=== PATIENT | male | born 1960 | race Caucasian/White ===

== ENCOUNTER 2017-11-10 23:41 | Emergency (ER) | END 2017-11-11 01:14 | disposition left against medical advice (07) ==

== ENCOUNTER → 2018-11-27 | Outpatient (CLI) | payer SELFPAY ==
[~2018-11-27] MED LIST: ATOR10TA65 PO; HYDR-3601 PO; IOHEXOL 300MG/ML 150 ML BTL ONE; SENN-120 PO; SOD CHLORIDE 0.9% 100 ML ONE
== END | disposition home or self-care (01) ==
LOC: C/S 12:13
PROVIDERS: ATTEND Surgery
DX: R10.2 Pelvic and perineal pain (principal)
CPT/HCPCS: 74177; Q9967

== ENCOUNTER 2019-01-05 17:26 | Emergency (ER) | payer OTHER ==
[~2019-01-05] VITALS: Ht 165.1 cm; Wt 70.1 kg
[~2019-01-05 17:26] MED LIST changes: -IOHEXOL 300MG/ML 150 ML BTL ONE; -SOD CHLORIDE 0.9% 100 ML ONE
[2019-01-05 17:30] VITALS: Ht 165.1 cm; Wt 70.1 kg
[2019-01-05] MEDS ORDERED: HYDROCODONE/APAP (5/325) TAB PO ONE (18:00)
[2019-01-05] MEDS ORDERED: LIDOCAINE 1% (MDV) 20 ML INJ SC ONE (18:00)
[2019-01-05] MEDS ORDERED: DIPHTH/TET/ACEL PERTUSS (ADULT) 0.5 ML VIAL IM* ONE (18:00)
[2019-01-05] MEDS ORDERED: CEPHALEXIN 500 MG CAP PO ONE (18:30)
[2019-01-05] MEDS ORDERED: HYDR-4011 PO (19:10)
[2019-01-05] MEDS ORDERED: CEPH-443 PO (19:10)
[2019-01-05] MEDS ORDERED: IBUP-1542 PO (19:11)
--- NOTE | 2019-01-05 19:16 | ERD ---
ER Documentation Chief Complaint Chief Complaint CUT INDEX AND MIDDLE LEFT FINGER WITH SAW. NO RECENT TDAP HPI 58-year-old male sustained a laceration on his left index finger left middle f tonya with a table saw today. He has no restricted range of motion or weakness. Tetanus is not up-to-date. Denies additional injury. ROS All systems reviewed and are negative except as per history of present illness. Medications Home Meds Active Scripts Ibuprofen* (Motrin*) 600 Mg Tab, 600 MG PO Q6H PRN for PAIN, #20 TAB Prov:KEITH CLIFFORD MD 01/05/19 Hydrocodone/Acetaminophen ([place] 5-325 Tablet) 1 Each Tablet, 1 TAB PO Q6H PRN for PAIN, #10 TAB Prov:KEITH CLIFFORD MD 01/05/19 Cephalexin* (Keflex*) 500 Mg Capsule, 500 MG PO Q6 for 7 Days, #28 CAP Prov:KEITH CLIFFORD MD 01/05/19 Sennosides* (Senna Lax*) 8.6 Mg Tablet, 1 TAB PO Q12H PRN for CONSTIPATION, #10 TAB Prov:JIGNA REED MD 03/19/18 Atorvastatin Calcium (Atorvastatin Calcium) 10 Mg Tablet, 10 MG PO QHS, #30 TAB Prov:JIGNA REED MD 03/19/18 Hydrocodone Bit-Acetaminophen (Hydrocodone Bit-APAP) 5-325MG Tablet, 2 TAB PO Q6H PRN for SEVERE PAIN LEVEL 7-10, #30 TAB Prov:JIGNA REED MD 03/19/18 Allergies Allergies: Coded Allergies: No Known Drug Allergies (Verified Allergy, Unknown, 01/05/19) PMhx/Soc History of Surgery: Yes (HERNIA REPAIR ) Anesthesia Reaction: No Hx Neurological Disorder: No Hx Respiratory Disorders: No Hx Cardiac Disorders: No Hx Psychiatric Problems: No Hx Miscellaneous Medical Probl: No Hx Alcohol Use: Yes Hx Substance Use: No Hx Tobacco Use: Yes Smoking Status: Current every day smoker FmHx Family History: No diabetes, No coronary disease, No other Physical Exam Vitals Vital Signs Date Temp Pulse Resp B/P (MAP) Pulse Ox O2 O2 Flow FiO2 Time Delivery Rate 01/05/19 98.1 70 19 188/88 95 17:30 (121) Physical Exam Const: No acute distress Head: Atraumatic Eyes: Normal Conjunctiva ENT: Normal External Ears, Nose and Mouth. Neck: Full range of motion. No meningismus. Resp: Clear to auscultation bilaterally Cardio: Regular rate and rhythm, no murmurs Abd: Soft, non tender, non distended. Normal bowel sounds Skin: No petechiae or rashes Back: No midline or flank tenderness Ext: No cyanosis, or edema. Maceration or superficial laceration through the nail and the pad of the left index finger. There is approximately 1.5 cm laceration across the volar DIP joint. No deficits or weakness. Neur: Awake and alert Psych: Normal Mood and Affect Results 24 hrs Current Medications Medications Dose Sig/Home Start Time Status Last (Trade) Ordered Route PRN Stop Time Admin Dose Reason Admin 1 tab ONCE ONCE 01/05/19 DC 01/05/19 Acetaminophen PO 18:00 01/05/19 18:09 / 18:01 Hydrocodone Bitart ([place] (5/325)) Diphtheria/ 0.5 ml ONCE ONCE 01/05/19 DC 01/05/19 Tetanus/Acell IM* 18:00 01/05/19 18:10 Pertussis 18:01 (Adacel) Lidocaine 20 ml ONCE ONCE 01/05/19 DC (Xylocaine SC 18:00 01/05/19 1% (Mdv) 20 18:01 ml) Cephalexin 500 mg ONCE ONCE 01/05/19 DC 01/05/19 (Keflex) PO 18:30 01/05/19 18:15 18:31 Procedures/MDM X-ray Hand 3V interpreted by me: Scaphoid: Normal Bones: No fracture Joints: No dislocation Foreign body: None. Impression-small metallic soft tissue foreign body left forearm not in the area of injury. No acute fracture or dislocation. Patient was given a tetanus booster. Obtained irrigated copiously with normal saline. 2 cc of lidocaine was used perform via sterile technique in the left index and left middle finger to perform a digital block in each finger. 2 4-0 nylon sutures were used to reapproximate the soft tissue injury at the tip of the left index finger. 4 4-0 nylon sutures were used to reapproximate the laceration on the middle finger. Tolerated procedure well. Wound was then dressed. Patient was given [place], Keflex for pain prophylaxis given the mechanism. Patient has no signs of tendon deficits, fracture, dislocation, infection, ischemia. Patient will be discharged home with recommendations for 2-day wound check in 7-10 days suture removal. Patient was advised to return sooner for fevers, redness, new worsening symptoms. Departure Diagnosis: Primary Impression: Laceration Condition: Stable Patient Instructions: Laceration, Hand Referrals: DOCTOR,NOT ON STAFF (PCP) Additional Instructions: Recommend wound check in 2 days for infection and suture removal in 7-10 days. Recheck sooner for fevers, redness, new worsening symptoms. To take ibuprofen every 6 hours as well for pain. KEITH CLIFFORD MD Jan 05, 2019 19:16
[2019-01-05 19:22] VITALS: BP 164/70; PULSE 80; RESP 19
== END 2019-01-05 19:23 | disposition home or self-care (01) ==
LOC: FTE 17:26
DX: S61.211A Laceration without foreign body of left index finger without damage to nail, initial encounter (principal); S61.213A Laceration without foreign body of left middle finger without damage to nail, initial encounter; F17.210 Nicotine dependence, cigarettes, uncomplicated; W27.0XXA Contact with workbench tool, initial encounter; Y92.9 Unspecified place or not applicable; Z23 Encounter for immunization
CPT/HCPCS: 12001; 73130; 90471; 90715; Z7502; Z7610

== ENCOUNTER 2019-01-13 20:00 | Emergency (ER) | payer OTHER ==
[~2019-01-13] VITALS: Ht 167.6 cm; Wt 71.4 kg
[~2019-01-13 20:00] MED LIST changes: +CEPH-443 PO; +HYDR-4011 PO; +IBUP-1542 PO
[2019-01-13 20:33] VITALS: BP 148/79; PULSE 75; RESP 18; Ht 167.6 cm; Wt 71.4 kg
[2019-01-13] MEDS ORDERED: CLIN300C10 PO (23:53)
--- NOTE | 2019-01-14 00:13 | ERD ---
ER Documentation Chief Complaint Chief Complaint wound check left hand, was here few days ago for lac repair HPI 58-year-old male presents for follow-up for laceration repair done a week ago. Laceration was on the left hand. States that he has been changing the dressings daily. In addition he was prescribed Keflex and finished taking it today. States there is moderate pain but he does not want any pain medications. Denies any fevers, numbness, impaired range of motion. ROS All systems reviewed and are negative except as per history of present illness. Medications Home Meds Active Scripts Clindamycin Hcl* (Clindamycin Hcl*) 300 Mg Capsule, 300 MG PO QID for 7 Days, CAP Prov:COLETTE HI 01/13/19 Ibuprofen* (Motrin*) 600 Mg Tab, 600 MG PO Q6H PRN for PAIN, #20 TAB Prov:KEITH CLIFFORD MD 01/05/19 Hydrocodone/Acetaminophen ([place] 5-325 Tablet) 1 Each Tablet, 1 TAB PO Q6H PRN for PAIN, #10 TAB Prov:KEITH CLIFFORD MD 01/05/19 Cephalexin* (Keflex*) 500 Mg Capsule, 500 MG PO Q6 for 7 Days, #28 CAP Prov:KEITH CLIFFORD MD 01/05/19 Sennosides* (Senna Lax*) 8.6 Mg Tablet, 1 TAB PO Q12H PRN for CONSTIPATION, #10 TAB Prov:JIGNA REED MD 03/19/18 Atorvastatin Calcium (Atorvastatin Calcium) 10 Mg Tablet, 10 MG PO QHS, #30 TAB Prov:JIGNA REED MD 03/19/18 Hydrocodone Bit-Acetaminophen (Hydrocodone Bit-APAP) 5-325MG Tablet, 2 TAB PO Q6H PRN for SEVERE PAIN LEVEL 7-10, #30 TAB Prov:JIGNA REED MD 03/19/18 Allergies Allergies: Coded Allergies: No Known Drug Allergies (Verified Allergy, Unknown, 01/05/19) PMhx/Soc Medical and Surgical Hx: pt denies Medical Hx, pt denies Surgical Hx History of Surgery: Yes (HERNIA REPAIR ) Anesthesia Reaction: No Hx Neurological Disorder: No Hx Respiratory Disorders: No Hx Cardiac Disorders: No Hx Psychiatric Problems: No Hx Miscellaneous Medical Probl: No Hx Alcohol Use: No Hx Substance Use: No Hx Tobacco Use: No Smoking Status: Never smoker Physical Exam Vitals Vital Signs Date Temp Pulse Resp B/P (MAP) Pulse Ox O2 O2 Flow FiO2 Time Delivery Rate 01/13/19 98.1 75 18 148/79 99 20:33 (102) Physical Exam Const: No acute distress Head: Atraumatic Eyes: Normal Conjunctiva ENT: Normal External Ears, Nose and Mouth. Neck: Full range of motion. No meningismus. Resp: Clear to auscultation bilaterally Cardio: Regular rate and rhythm, no murmurs Left hand Sutures are intact with no dehiscence, bleeding, or discharge. Finger is nonedematous. There is distal sensation and range of motion. Neur: Awake and alert Psych: Normal Mood and Affect Procedures/MDM MDM: 58-year-old male presents for follow-up for laceration repair done a week ago. Laceration was on the left hand. States that he has been changing the dressings daily. In addition he was prescribed Keflex and finished taking it today. States there is moderate pain but he does not want any pain medications. Denies any fevers, numbness, impaired range of motion. Low suspicion for infection, neurovascular compromise, compartment syndrome, or other emergent condition. To prevent infection patient was placed on clindamycin. Upon discharge patient refused the prescription. Patient advised to return in 1 week for suture removal. Patient advised to change dressings daily. Patient discharged with strict ER precautions. Patient advised to follow up with PMD. All questions answered at discharge. Departure Diagnosis: Primary Impression: Encounter for wound re-check Condition: Stable Patient Instructions: Wound Care, Wound Check, Lac F/U (No Infection) Referrals: [facility] YOU HAVE RECEIVED A MEDICAL SCREENING EXAM AND THE RESULTS INDICATE THAT YOU DO NOT HAVE A CONDITION THAT REQUIRES URGENT TREATMENT IN THE EMERGENCY DEPARTMENT. FURTHER EVALUATION AND TREATMENT OF YOUR CONDITION CAN WAIT UNTIL YOU ARE SEEN IN YOUR DOCTORS OFFICE WITHIN THE NEXT 1-2 DAYS. IT IS YOUR RESPONSIBILITY TO MAKE AN APPOINTMENT FOR FOLOW-UP CARE. IF YOU HAVE A PRIMARY DOCTOR --you should call your primary doctor and schedule an appointment IF YOU DO NOT HAVE A PRIMARY DOCTOR YOU CAN CALL OUR PHYSICIAN REFERRAL HOTLINE AT IF YOU CAN NOT AFFORD TO SEE A PHYSICIAN YOU CAN CHOSE FROM THE FO[facility] [address] [facility] [address] [facility] [address] [facility] [address] [facility]. [facility] [address] [facility]. [facility] [address] Additional Instructions: FOLLOW UP FOR SUTURE REMOVAL IN 1 WEEK. Return to this facility if you are not improving as expected. COLETTE HI Jan 14, 2019 00:13
== END 2019-01-14 00:26 | disposition home or self-care (01) ==
LOC: FTE 20:00
DX: Z48.01 Encounter for change or removal of surgical wound dressing (principal)
CPT/HCPCS: 99281

== ENCOUNTER 2019-06-20 16:11 | Emergency (ER) | payer OTHER ==
[~2019-06-20] VITALS: Ht 165.1 cm; Wt 71.2 kg
[~2019-06-20 16:11] MED LIST changes: +CLIN300C10 PO; +METH750T93 PO
[2019-06-20 16:34] VITALS: BP 155/83; PULSE 104; RESP 20; Ht 165.1 cm; Wt 71.2 kg
[2019-06-20] MEDS ORDERED: ONDANSETRON (ODT) 4 MG TAB ODT STA (17:34)
[2019-06-20] MEDS ORDERED: HYDROCODONE/APAP (5/325) TAB PO ONE (18:00)
--- NOTE | 2019-06-20 19:42 | ERD ---
ER Documentation Chief Complaint Chief Complaint WORSENING CHRONIC BACK PAIN X SEVERAL DAYS ROS All systems reviewed and are negative except as per history of present illness. Medications Home Meds Active Scripts Methocarbamol* (Robaxin*) 750 Mg Tablet, 750 MG PO TID PRN for MUSCLE SPASMS, #30 TAB Prov:JODY PENNY 06/20/19 Hydrocodone/Acetaminophen ([place] 5-325 Tablet) 1 Each Tablet, 1 TAB PO Q6H PRN for PAIN, #10 TAB Prov:PENNYJODY 06/20/19 Cephalexin* (Keflex*) 500 Mg Capsule, 500 MG PO BID for uti for 5 Days, #10 CAP Prov:JODY PENNY 06/20/19 Clindamycin Hcl* (Clindamycin Hcl*) 300 Mg Capsule, 300 MG PO QID for 7 Days, CAP Prov:COLETTE HI 01/13/19 Ibuprofen* (Motrin*) 600 Mg Tab, 600 MG PO Q6H PRN for PAIN, #20 TAB Prov:KEITH CLIFFORD MD 01/05/19 Hydrocodone/Acetaminophen ([place] 5-325 Tablet) 1 Each Tablet, 1 TAB PO Q6H PRN for PAIN, #10 TAB Prov:KEITH CLIFFORD MD 01/05/19 Cephalexin* (Keflex*) 500 Mg Capsule, 500 MG PO Q6 for 7 Days, #28 CAP Prov:KEITH CLIFFORD MD 01/05/19 Sennosides* (Senna Lax*) 8.6 Mg Tablet, 1 TAB PO Q12H PRN for CONSTIPATION, #10 TAB Prov:JIGNA REED MD 03/19/18 Atorvastatin Calcium (Atorvastatin Calcium) 10 Mg Tablet, 10 MG PO QHS, #30 TAB Prov:JIGNA REED MD 03/19/18 Hydrocodone Bit-Acetaminophen (Hydrocodone Bit-APAP) 5-325MG Tablet, 2 TAB PO Q6H PRN for SEVERE PAIN LEVEL 7-10, #30 TAB Prov:JGINA REED MD 03/19/18 Allergies Allergies: Coded Allergies: No Known Drug Allergies (Verified Allergy, Unknown, 01/05/19) PMhx/Soc Medical and Surgical Hx: pt denies Medical Hx History of Surgery: Yes (HERNIA REPAIR ) Anesthesia Reaction: No Hx Neurological Disorder: No Hx Respiratory Disorders: No Hx Cardiac Disorders: No Hx Psychiatric Problems: No Hx Miscellaneous Medical Probl: No Hx Alcohol Use: No Hx Substance Use: No Hx Tobacco Use: Yes Smoking Status: Current every day smoker Physical Exam Vitals Vital Signs Date Temp Pulse Resp B/P (MAP) Pulse Ox O2 O2 Flow FiO2 Time Delivery Rate 06/20/19 98.0 104 20 155/83 97 16:34 (107) Physical Exam Const: No acute distress Head: Atraumatic Eyes: Normal Conjunctiva ENT: Normal External Ears, Nose and Mouth. Neck: Full range of motion. No meningismus. Resp: Clear to auscultation bilaterally Cardio: Regular rate and rhythm, no murmurs Abd: Soft, non tender, non distended. Normal bowel sounds Skin: No petechiae or rashes Back: No midline or flank tenderness Ext: No cyanosis, or edema Neur: Awake and alert Psych: Normal Mood and Affect Result Diagram: 06/20/19 1755 06/20/19 1755 Results 24 hrs Laboratory Tests Test 06/20/19 17:55 06/20/19 18:05 White Blood Count 9.0 10^3/ul Red Blood Count 4.78 10^6/ul Hemoglobin 15.2 g/dl Hematocrit 44.3 % Mean Corpuscular Volume 92.7 fl Mean Corpuscular Hemoglobin 31.8 pg Mean Corpuscular Hemoglobin Concent 34.3 g/dl Red Cell Distribution Width 12.1 % Platelet Count 224 10^3/UL Mean Platelet Volume 10.5 fl Immature Granulocytes % 0.300 % Neutrophils % 53.7 % Lymphocytes % 36.8 % Monocytes % 6.7 % Eosinophils % 2.1 % Basophils % 0.4 % Nucleated Red Blood Cells % 0.0 /100WBC Immature Granulocytes # 0.030 10^3/ul Neutrophils # 4.8 10^3/ul Lymphocytes # 3.3 10^3/ul Monocytes # 0.6 10^3/ul Eosinophils # 0.2 10^3/ul Basophils # 0.0 10^3/ul Nucleated Red Blood Cells # 0.0 10^3/ul Sodium Level 141 mmol/L Potassium Level 4.0 mmol/L Chloride Level 104 mmol/L Carbon Dioxide Level 25 mmol/L Anion Gap 12 Blood Urea Nitrogen 12 mg/dl Creatinine 0.75 mg/dl Est Glomerular Filtrat Rate mL/min > 60 mL/min Glucose Level 111 mg/dl Calcium Level 9.4 mg/dl Total Bilirubin 0.3 mg/dl Direct Bilirubin 0.00 mg/dl Indirect Bilirubin 0.3 mg/dl Aspartate Amino Transf (AST/SGOT) 22 IU/L Alanine Aminotransferase (ALT/SGPT) 27 IU/L Alkaline Phosphatase 60 IU/L Total Protein 7.6 g/dl Albumin 4.4 g/dl Globulin 3.20 g/dl Albumin/Globulin Ratio 1.37 Lipase 92 U/L Urine Color YELLOW Urine Clarity CLEAR Urine pH 6.0 Urine Specific [place] 1.028 Urine Ketones 1+ mg/dL Urine Nitrite NEGATIVE mg/dL Urine Bilirubin NEGATIVE mg/dL Urine Urobilinogen 1+ mg/dL Urine Leukocyte Esterase 1+ Nigel/ul Urine Microscopic RBC 2 /HPF Urine Microscopic WBC 1 /HPF Urine Bacteria FEW /HPF Urine Mucus MANY /HPF Urine Hemoglobin NEGATIVE mg/dL Urine Glucose NEGATIVE mg/dL Urine Total Protein NEGATIVE mg/dl Current Medications Medications Dose Sig/Home Start Time Status Last (Trade) Ordered Route PRN Stop Time Admin Dose Reason Admin 1 tab ONCE ONCE 06/20/19 DC 06/20/19 Acetaminophen PO 18:00 18:03 / 06/20/19 18:01 Hydrocodone Bitart ([place] (5/325)) Ondansetron 4 mg ONCE STAT 06/20/19 DC 06/20/19 HCl (Zofran ODT 17:34 18:03 Odt) 06/20/19 17:35 Departure Diagnosis: Primary Impression: Back pain Back pain location: low back pain Chronicity: unspecified Back pain laterality: unspecified Sciatica presence: unspecified whether sciatica present Qualified Codes: M54.5 - Low back pain Additional Impression: UTI (urinary tract infection) Urinary tract infection type: acute cystitis Hematuria presence: without hematuria Qualified Codes: N30.00 - Acute cystitis without hematuria Condition: Fair Patient Instructions: Understanding Urinary Tract Infections (UTIs), Neck or Spine Fractures (Broken Neck or Spine), Back Pain W/ Sciatica Referrals: [facility] YOU HAVE RECEIVED A MEDICAL SCREENING EXAM AND THE RESULTS INDICATE THAT YOU DO NOT HAVE A CONDITION THAT REQUIRES URGENT TREATMENT IN THE EMERGENCY DEPARTMENT. FURTHER EVALUATION AND TREATMENT OF YOUR CONDITION CAN WAIT UNTIL YOU ARE SEEN IN YOUR DOCTORS OFFICE WITHIN THE NEXT 1-2 DAYS. IT IS YOUR RESPONSIBILITY TO MAKE AN APPOINTMENT FOR FOLOW-UP CARE. IF YOU HAVE A PRIMARY DOCTOR --you should call your primary doctor and schedule an appointment IF YOU DO NOT HAVE A PRIMARY DOCTOR YOU CAN CALL OUR PHYSICIAN REFERRAL HOTLINE AT IF YOU CAN NOT AFFORD TO SEE A PHYSICIAN YOU CAN CHOSE FROM THE FOLLOWING [facility] [address] [facility] [address] [facility]. [facility] [address] [facility] [address] [facility]. [facility] [address] [facility] [facility] [address] Additional Instructions: Call your primary care doctor TOMORROW for an appointment during the next 1-2 days.See the doctor sooner or return here if your condition worsens before your appointment time. JODY PENNY DO Jun 20, 2019 19:42
== END 2019-06-20 19:46 | disposition home or self-care (01) ==
LOC: FTE 16:11
DX: M54.5 Low back pain (principal); F17.210 Nicotine dependence, cigarettes, uncomplicated; N30.00 Acute cystitis without hematuria
CPT/HCPCS: 72131; 74176; 80053; 81001; 83690; 85025; Z7502; Z7610